=== PATIENT | female | born 1985 | race Two or more races ===

== ENCOUNTER 2021-08-06 16:15 | Emergency (ER) | payer OTHER ==
[~2021-08-06] VITALS: Ht 172.7 cm; Wt 54.4 kg
[2021-08-06 17:57] VITALS: BP 137/79
[2021-08-06] MEDS ORDERED: IBUP800T27 PO (18:40)
[2021-08-06] MEDS ORDERED: CYCL-837 PO (18:40)
[2021-08-06] MEDS ORDERED: DOXY-286 PO (18:51)
== END 2021-08-06 19:04 | disposition home or self-care (01) ==
LOC: EDBD 16:15 → ER 16:15
DX: S83.92XA Sprain of unspecified site of left knee, initial encounter (principal); S20.219A Contusion of unspecified front wall of thorax, initial encounter; J18.9 Pneumonia, unspecified organism; V43.52XA Car driver injured in collision with other type car in traffic accident, initial encounter; Y93.89 Activity, other specified; Y92.410 Unspecified street and highway as the place of occurrence of the external cause; Y99.8 Other external cause status
CPT/HCPCS: 29505; 71046; 73562; 93005